=== PATIENT | female | born 1990 | race Caucasian/White ===

== ENCOUNTER 2018-04-12 07:50 | Emergency (ER) | payer OTHER ==
[2018-04-12] MEDS ORDERED: NS 1,000 ML IV ONE ×2 (08:01→08:57)
--- NOTE | 2018-04-12 08:01 | EDPHY ---
H & P Stated Complaint: r sided abd pain Source: Patient - Personal History LMP (Females 10-55): IUD In Place Current Tetanus Diphtheria and Acellular Pertussis (TDAP): Yes - Medical/Surgical History Hx Asthma: No Hx Chronic Respiratory Disease: No Hx Diabetes: No Hx Cardiac Disease: No Hx Renal Disease: No Hx Cirrhosis: No Hx Alcoholism: No Hx HIV/AIDS: No Hx Splenectomy or Spleen Trauma: No Other PMH: clavicle fx - Social History Smoking Status: Never smoked Time Seen by Provider: 04/12/18 08:01 HPI/ROS: HPI CHIEF COMPLAINT: Abdominal pain HISTORY OF PRESENT ILLNESS: 27-year-old female, presents emergency room with sudden onset lower abdominal pain that started around 615 this morning. Describes as very sharp stabbing lower abdominal pain from the periumbilical region down. She had nausea upon arrival to the emergency room with 1 episode of vomiting. No diarrhea. She had a bowel movement this morning. She states was normal. Few days ago she had some intense lower abdominal pain as well. Now the pain return. States that she does not get menstrual cycles. Has the Mirena. Denies being . Denies urinary symptoms or vaginal discharge. She does state that she just returned from [facility] she has been there for a year and had multiple previous urinary tract infections. Denies diarrhea. Father at bedside who is a internal medicine physician. Patient has an IUD. Past Medical History: Clavicle fracture Past Surgical History: Denies significant surgical history Social History: Denies drugs alcohol tobacco. Family History: Noncontributory ROS REVIEW OF SYSTEMS: 10 Systems were reviewed and negative with the exception of the elements mentioned in the history of present illness. Exam Constitutional nontoxic no acute distress triage nursing summary reviewed, vital signs reviewed, awake/alert. Eyes normal conjunctivae and sclera, EOMI, PERRLA. HENT normal inspection, atraumatic, moist mucus membranes, no epistaxis, neck supple/ no meningismus, no raccoon eyes. Respiratory clear to auscultation bilaterally, normal breath sounds, no respiratory distress, no wheezing. Cardiovascular rate normal, regular rhythm, no murmur, no edema, distal pulses normal. Gastrointestinal mild tender palpation lower abdomen periumbilical right lower quadrant, no rebound, no guarding, normal bowel sounds, no distension, no pulsatile mass. Genitourinary no CVA tenderness. Musculoskeletal no midline vertebral tenderness, full range of motion, no calf swelling, no tenderness of extremities, no meningismus, good pulses, neurovascularly intact. Skin pink, warm, & dry, no rash, skin atraumatic. Neurologic awake, alert and oriented x 3, AAOx3, moves all 4 extremities equally, motor intact, sensory intact, CN II-XII intact, normal cerebellar, normal vision, normal speech. Psychiatric normal mood/affect. Heme/Lymph/Immune no lymphadenopathy. Differential Diagnosis: Differential diagnosis includes but is not limited to and in no particular order: Ovarian cyst, ruptured ovarian cyst, Bowel obstruction, appendicitis, gallbladder disease, diverticulitis, colitis, enteritis, perforated viscus, gastritis, GERD, esophagitis, urinary tract infection, pyelonephritis, kidney stones Medical Decision Making: Plan for this patient IV establishment IV fluid bolus IV Dilaudid 0.5 mg for pain control IV Zofran 4 mg for nausea basic blood work, urinalysis, test, and re-evaluate. Re-evaluation: [id number]: Signed over to Dr. Millard at 9:[address] a[address] Follow-up CT scan and re-evaluate the patient. Rule out appendicitis. Patient is having lower abdominal pain. (Chaitanya Medina) Constitutional: Initial Vital Signs Temperature (C) 36.4 C 04/12/18 07:51 Heart Rate 68 04/12/18 07:51 Respiratory Rate 20 04/12/18 07:51 Blood Pressure 125/75 H 04/12/18 07:51 O2 Sat (%) 100 04/12/18 07:51 O2 Delivery Mode Room Air Allergies/Adverse Reactions: No Known Allergies Allergy (Unverified 04/12/18 07:51) Home Medications: Medication Instructions Recorded Doxycycline Calcium 04/12/18 MIRENA 04/12/18 NK [No Known Home Meds] 04/12/18 Spironolactone 04/12/18 Medical Decision Making - Diagnostics Imaging Results: Imaging Impressions Abdomen CT 04/12/18 08:07 Impression: 1. 3.3 cm right ovarian cyst with moderate free fluid, which could be related to recent cyst rupture but is nonspecific. 2. Moderate stool in the colon. 3. Additional findings as above. Findings discussed with Dung Millard MD 04/12/2018 at 9:04. Other Provider: I assumed care of the patient at 9:[address] scan does demonstrate a right ovarian cyst with pelvic free fluid. Appendix is normal. I re-evaluated the patient at 9:30 a.m. and find no significant right lower quadrant tenderness. I doubt ovarian torsion based upon her current exam. The patient was given a IV dose of Toradol. Patient will be discharged home with customary ovarian cyst aftercare instructions. She is given customary return precautions. (Isaac Millard) - Data Points Laboratory Results: Laboratory Results 04/12/18 08:03 04/12/18 08:03 04/12/18 04/12/18 04/12/18 08:03 08:03 08:03 WBC 8.91 10^3/uL 10^3/uL (3.80-9.50) RBC 4.68 10^6/uL 10^6/uL (4.18-5.33) Hgb 14.7 g/dL g/dL (12.6-16.3) Hct 42.4 % % (38.0-47.0) MCV 90.6 fL fL (81.5-99.8) MCH 31.4 pg pg (27.9-34.1) MCHC 34.7 g/dL g/dL (32.4-36.7) RDW 12.0 % % (11.5-15.2) Plt Count 277 10^3/uL 10^3/uL (150-400) MPV 10.0 fL fL (8.7-11.7) Neut % (Auto) 48.9 % % (39.3-74.2) Lymph % (Auto) 39.4 % % (15.0-45.0) [place] % (Auto) 9.7 % % (4.5-13.0) Eos % (Auto) 1.1 % % (0.6-7.6) Baso % (Auto) 0.7 % % (0.3-1.7) Nucleat RBC Rel Count 0.0 % % (0.0-0.2) Absolute Neuts (auto) 4.36 10^3/uL 10^3/uL (1.70-6.50) Absolute Lymphs (auto) 3.51 10^3/uL H 10^3/uL (1.00-3.00) Absolute Monos (auto) 0.86 10^3/uL H 10^3/uL (0.30-0.80) Absolute Eos (auto) 0.10 10^3/uL 10^3/uL (0.03-0.40) Absolute Basos (auto) 0.06 10^3/uL 10^3/uL (0.02-0.10) Absolute Nucleated RBC 0.00 10^3/uL 10^3/uL (0-0.01) Immature Gran % 0.2 % % (0.0-1.1) Immature Gran # 0.02 10^3/uL 10^3/uL (0.00-0.10) Sodium 138 mEq/L mEq/L (135-145) Potassium 3.7 mEq/L mEq/L (3.5-5.2) Chloride 106 mEq/L mEq/L (97-110) Carbon Dioxide 21 mEq/l L mEq/l (22-31) Anion Gap 11 mEq/L mEq/L (6-14) BUN 11 mg/dL mg/dL (7-23) Creatinine 0.6 mg/dL mg/dL (0.6-1.0) Estimated GFR > 60 Glucose 99 mg/dL mg/dL (70-100) Calcium 9.5 mg/dL mg/dL (8.5-10.4) Total Bilirubin 0.6 mg/dL mg/dL (0.1-1.4) Conjugated Bilirubin 0.3 mg/dL mg/dL (0.0-0.5) Unconjugated Bilirubin 0.3 mg/dL mg/dL (0.0-1.1) AST 27 IU/L IU/L (14-46) ALT 25 IU/L IU/L (9-52) Alkaline Phosphatase 96 IU/L IU/L (38-126) Total Protein 7.8 g/dL g/dL (6.3-8.2) Albumin 4.8 g/dL g/dL (3.5-5.0) Lipase 82 IU/L IU/L (23-300) Beta HCG, Qual NEGATIVE Urine Color Urine Appearance Urine pH Ur Specific [place] Urine Protein Urine Ketones Urine Blood Urine Nitrate Urine Bilirubin Urine Urobilinogen Ur Leukocyte Esterase Urine Glucose 04/12/18 07:56 WBC RBC Hgb Hct MCV MCH MCHC RDW Plt Count MPV Neut % (Auto) Lymph % (Auto) [place] % (Auto) Eos % (Auto) Baso % (Auto) Nucleat RBC Rel Count Absolute Neuts (auto) Absolute Lymphs (auto) Absolute Monos (auto) Absolute Eos (auto) Absolute Basos (auto) Absolute Nucleated RBC Immature Gran % Immature Gran # Sodium Potassium Chloride Carbon Dioxide Anion Gap BUN Creatinine Estimated GFR Glucose Calcium Total Bilirubin Conjugated Bilirubin Unconjugated Bilirubin AST ALT Alkaline Phosphatase Total Protein Albumin Lipase Beta HCG, Qual Urine Color YELLOW Urine Appearance HAZY Urine pH 5.0 (5.0-7.5) Ur Specific [place] 1.024 (1.002-1.030) Urine Protein NEGATIVE (NEGATIVE) Urine Ketones TRACE H (NEGATIVE) Urine Blood NEGATIVE (NEGATIVE) Urine Nitrate NEGATIVE (NEGATIVE) Urine Bilirubin NEGATIVE (NEGATIVE) Urine Urobilinogen NEGATIVE EU EU (0.2-1.0) Ur Leukocyte Esterase NEGATIVE (NEGATIVE) Urine Glucose NEGATIVE (NEGATIVE) Medications Given: Discontinued Medications Hydromorphone HCl (Dilaudid) 0.5 mg IVP EDNOW ONE Stop: 04/12/18 08:08 Last Admin: 04/12/18 08:12 Dose: 0.5 mg Hydromorphone HCl (Dilaudid) 1 mg IVP EDNOW ONE Stop: 04/12/18 08:58 Last Admin: 04/12/18 09:02 Dose: 1 mg Sodium Chloride (Ns) 1,000 mls @ 0 mls/hr IV EDNOW ONE; Wide Open PRN Reason: Protocol Stop: 04/12/18 08:02 Last Admin: 04/12/18 08:09 Dose: 1,000 mls Sodium Chloride (Ns) 1,000 mls @ 0 mls/hr IV ONCE ONE PRN Reason: Wide Open Stop: 04/12/18 08:58 Last Admin: 04/12/18 09:02 Dose: 1,000 mls Ondansetron HCl (Zofran) 4 mg IVP EDNOW ONE Stop: 04/12/18 08:08 Last Admin: 04/12/18 08:09 Dose: 4 mg Departure - Departure Disposition: Home, Routine, Self-Care Clinical Impression: Abdominal pain, Ruptured ovarian cyst Condition: Good Instructions: Acute Abdominal Pain (ED), Ruptured Ovarian Cyst (ED) Additional Instructions: 1. Take Ibuprofen or Motrin 600 mg by mouth three times a day. 2. [place] as needed for severe pain 3. Return to the ED for markedly worsening pain, fever, intractable vomiting or other concerns. 4. Please follow-up with your cytometry technologist for recheck as scheduled. Be sure to tell them of your ED visit diagnosis of ovarian cyst.
[2018-04-12] MEDS ORDERED: ONDANSETRON 4 MG/2 ML VIAL ONE (08:06)
[2018-04-12] MEDS ORDERED: HYDROmorphONE/DILAUDID 2 MG/ML INJ IVP ONE ×2 (08:07→08:57)
[2018-04-12] MEDS ORDERED: ONDANSETRON 4 MG/2 ML VIAL IVP ONE (08:07)
[2018-04-12 08:12] LABS: PLATELET COUNT 277 10^3/uL (150-400)
[2018-04-12] MEDS ORDERED: IOPAMIDOL (ISOVUE 370) 100 ML BTL IV ONE (08:12)
[2018-04-12] MEDS ORDERED: KETOROLAC 30 MG/1 ML SDV IVP ONE (09:38)
[2018-04-12 09:55] VITALS: BP 124/75
== END 2018-04-12 10:04 | disposition home or self-care (01) ==
DX: R10.9 Unspecified abdominal pain (principal); N83.201 Unspecified ovarian cyst, right side
CPT/HCPCS: 96374; J1170; J1885; J2405; Q9967